=== PATIENT | male | born 1955 | race Native Hawaiian/Other Pacific Islander ===

== ENCOUNTER 2017-11-01 21:56 | Observation (INO) | payer BC ==
[~2017-11-01] VITALS: Ht 172.7 cm; Wt 98.1 kg
[~2017-11-01 21:56] MED LIST: ACTOS15 MG OR; ANDRODERM4 MG/24 HR TD; ASPIRIN ADULT L81 MG OR; CETI10TA PO; FARXIGA10 MG PO; FENOFIBRIC ACI135 MG PO; FORTAMET1000 MG PO; GLIMEPIRIDE1 MG PO; HYDR25TA60 PO; LIPITOR40 MG PO; VICTOZA18 MG/3 ML SC
[2017-11-01 22:19] VITALS: BP 129/93; TEMP 98.4
[2017-11-01 22:43] VITALS: BP 116/75
[2017-11-01 22:55] LABS: PLATELET COUNT 164 K/uL (142-355)
[2017-11-01 23:07] LABS: POTASSIUM 3.9 mmol/L (3.6-5.2)
[2017-11-01 23:13] VITALS: BP 111/79
[2017-11-01 23:43] VITALS: BP 116/75
[2017-11-01 23:52] VITALS: BP 118/73
[2017-11-02 00:21] LABS: PARTIAL THROMBOPLASTIN TIME 25.9 SECONDS (24.5-33.6)
[2017-11-02 00:56] VITALS: BP 120/76; TEMP 98; Ht 172.7 cm; Wt 98.1 kg
[2017-11-02] MEDS ORDERED: BENAZEPRIL HCL/1 TA1 PO (01:12)
[2017-11-02] MEDS ORDERED: VITAMIN D32000 UNIT PO (01:21)
[2017-11-02 04:00] VITALS: BP 115/68; TEMP 98.3
[2017-11-02 08:00] VITALS: BP 104/72; TEMP 98
[2017-11-02 12:00] VITALS: BP 115/72; TEMP 98.3
[2017-11-02 16:00] VITALS: BP 103/62; TEMP 98.4
== END 2017-11-02 17:55 | disposition home or self-care (01) ==
LOC: ED 21:56 → MED/SURG 23:45
DX: R07.89 Other chest pain (principal); E87.1 Hypo-osmolality and hyponatremia; E11.9 Type 2 diabetes mellitus without complications; G47.09 Other insomnia; G47.33 Obstructive sleep apnea (adult) (pediatric); I10 Essential (primary) hypertension; R09.81 Nasal congestion
CPT/HCPCS: 36415; 80053; 82550; 82553; 84484; 85027; 85610; 85730; 87081; 87804; 87880; 93005; 94760; 96365; 96367; 99220; 99283; G0378; J1650